=== PATIENT | male | born 1990 | race African-American/Black ===

== ENCOUNTER 2018-06-30 10:31 | Emergency (ER) | payer MEDICAID, OTHER ==
[~2018-06-30] VITALS: Ht 193 cm; Wt 108.9 kg
[2018-06-30 11:16] LABS: Urine Bacteria NONE SEEN /hpf (None Seen); Urine Blood Negative /uL (Negative); Urine Specific Gravity 1.024 (1.001-1.035); Urine WBC 5 /hpf (0 - 3)
[2018-06-30 11:20] LABS: Amphetamine Screen, Urine NEGATIVE (NEGATIVE); Benzodiazephine Screen, Urine NEGATIVE (NEGATIVE); Cannabinoid Screen, Urine POSITIVE (NEGATIVE); Cocaine Screen, Urine NEGATIVE (NEGATIVE); Opiate Scree,Urine NEGATIVE (NEGATIVE); Phencyclidine Screen, Urine NEGATIVE (NEGATIVE)
[2018-06-30 11:26] LABS: Barbiturate Scree,Urine NEGATIVE (NEGATIVE)
[2018-06-30 11:29] LABS: Basophils # (auto) 0 uL; Basophils % (auto) 0.7 % (0.0-2.0); Eosinophils # (auto) 0.3 uL; Eosinophils % (auto) 4.9 % (0.0-7.0); Hematocrit 47.9 % (41.0-53.0); Hemoglobin 16.2 g/dL (13.5-17.5); Lymphocytes # (auto) 1.5 uL; Lymphocytes % (auto) 24.4 % (10.0-50.0); Mean Corpuscular Hemoglobin 30.9 pg (28.0-32.0); Mean Corpuscular Hgb Conc. 33.8 g/dL (32.0-36.0); Mean Corpuscular Volume 91.6 fL (80.0-100.0); Monocytes # (auto) 0.4 uL; Monocytes % (auto) 6.1 % (0.0-12.0); Neutrophils % (auto) 63.9 % (37.0-80.0); Nucleated Red Blood Cells % 0.1 %; Platelet Count (auto) 178 10^3/uL (140-450); Red Blood Cells 5.23 10^6/uL (4.5-5.90); Red Cell Distribution Width 14.2 % (11.8-14.3); White Blood Cell 6.3 10^3/uL (4.4-10.8)
[2018-06-30 11:40] LABS: Alanine Aminotransferase 64 U/L (16-61); Albumin 3.9 g/dL (3.4-5.0); Anion Gap 8 (5-15); Aspartate Aminotransferase 45 U/L (15-37); BUN/Creatinine Ratio 11.3; Blood Alcohol < 3.0 mg/dL (0-5); Blood Urea Nitrogen 14 mg/dL (7-18); Calcium 8.6 mg/dL (8.5-10.1); Carbon Dioxide 24 mmol/L (21-32); Chloride 107 mmol/L (98-107); GFR African American 89 mL/min; GFR Non-African American 73 mL/min; Glucose 90 mg/dL (74-106); Potassium 4.1 mmol/L (3.5-5.1); Sodium 139 mmol/L (136-145)
[2018-06-30 11:42] LABS: Alkaline Phosphatase 59 U/L (45-117); Bilirubin, Total 0.8 mg/dL (0.2-1.0); Total Protein 8.1 g/dL (6.4-8.2)
[2018-06-30] MEDS ORDERED: ONDANSETRON HCL 4 MG/2 ML VIAL IV ONE (16:30)
[2018-06-30] MEDS ORDERED: SODIUM CHLORIDE 0.9% 1,000 ML IVB ONE (16:30)
[2018-06-30] MEDS ORDERED: PANTOPRAZOLE 40 MG/10 ML VIAL IV ONE ×2 (16:30→18:45)
[2018-06-30 17:00] LABS: Magnesium 2.1 mg/dL (1.6-2.6)
[2018-06-30 17:11] LABS: INR 1.06 (0.9-1.15); Partial Thromboplastin Time 27.8 sec (23.78-33.04); Prothrombin Time 11.3 sec (9.27-12.13)
[2018-06-30 17:53] VITALS: BP 120/54
[2018-06-30] MEDS ORDERED: SODIUM CHLORIDE 0.9% 1,000 ML IV SCH (18:35)
[2018-06-30] MEDS ORDERED: NITROGLYCERIN 0.4 MG SL TAB SL PRN (18:45)
[2018-06-30] MEDS ORDERED: THIAMINE 100mg/ml INJ (200mg/2ml VIAL) IV ONE (18:45)
[2018-06-30] MEDS ORDERED: TEMAZEPAM 15 MG CAP PO PRN (18:45)
[2018-06-30] MEDS ORDERED: cefTRIAXone 1GM/50ML D5W 50 ML IV ONE (18:45)
[2018-06-30] MEDS ORDERED: MORPHINE SULFATE 4 MG/ML SYR/VIAL IV PRN ×2 (18:45)
[2018-06-30] MEDS ORDERED: chlordiazePOXIDE HCL 25 MG CAP PO PRN (18:45)
[2018-06-30] MEDS ORDERED: PROMETHAZINE HCL 25 MG/ML 1ML IV PRN (18:45)
[2018-06-30] MEDS ORDERED: traMADol HCL 50 MG TAB PO PRN (18:45)
[2018-06-30] MEDS ORDERED: LORazepam 0.5 MG TAB PO PRN (18:45)
[2018-07-01] MEDS ORDERED: chlordiazePOXIDE HCL 5 MG CAP PO SCH
[2018-07-01] MEDS ORDERED: cefTRIAXone 1GM/50ML D5W 50 ML IV SCH (09:00)
[2018-07-01] MEDS ORDERED: PANTOPRAZOLE 40 MG/10 ML VIAL IV SCH (10:00)
[2018-07-01] MEDS ORDERED: THIAMINE 100mg/ml INJ (200mg/2ml VIAL) IV SCH (10:00)
== END 2018-06-30 19:17 | disposition left against medical advice (07) ==
LOC: ER 10:38 → UNDOADMIN 10:39 → TELE 10:39 → ER 19:17
DX: K92.0 Hematemesis (principal); F10.10 Alcohol abuse, uncomplicated; R94.5 Abnormal results of liver function studies; F17.210 Nicotine dependence, cigarettes, uncomplicated; F12.10 Cannabis abuse, uncomplicated
CPT/HCPCS: 36415; 71046; 74176; 80053; 80307; 80320; 81001; 82150; 83690; 83735; 85025; 85045; 85610; 85730; 87086; 94761; 96361; 96374; 96375; 99285; C9113; J2405

== ENCOUNTER 2020-03-01 23:06 | Emergency (ER) | payer MEDICAID ==
[~2020-03-01] VITALS: Ht 182.9 cm; Wt 106.6 kg
[2020-03-02 04:20] VITALS: BP 124/69
[2020-03-02] MEDS ORDERED: IBUPROFEN 800 MG TAB PO ONE (04:30)
== END 2020-03-02 04:39 | disposition home or self-care (01) ==
LOC: ER 23:06
DX: S90.862A Insect bite (nonvenomous), left foot, initial encounter (principal); F17.210 Nicotine dependence, cigarettes, uncomplicated; W57.XXXA Bitten or stung by nonvenomous insect and other nonvenomous arthropods, initial encounter; Y93.89 Activity, other specified; Y92.89 Other specified places as the place of occurrence of the external cause; Y99.8 Other external cause status
CPT/HCPCS: 73620

== ENCOUNTER 2021-05-02 18:13 | Emergency (ER) | payer MEDICAID ==
[~2021-05-02] VITALS: Ht 193 cm; Wt 97.5 kg
[2021-05-02 18:15] VITALS: BP 110/76
== END 2021-05-02 19:14 | disposition left against medical advice (07) ==
LOC: ER 18:13
DX: R68.84 Jaw pain (principal); Z53.21 Procedure and treatment not carried out due to patient leaving prior to being seen by health care provider

== ENCOUNTER 2025-03-17 12:25 | Emergency (ER) | payer MEDICAID, OTHER ==
[~2025-03-17] VITALS: Ht 193 cm; Wt 103.4 kg
[2025-03-17 12:41] VITALS: BP 107/67; PULSE 69; RESP 22; TEMP 97.7; O2SAT 97
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
[2025-03-17] MEDS ORDERED: IBUP-1456 PO (13:56)
== END 2025-03-17 14:01 | disposition home or self-care (01) ==
LOC: ER 12:29
DX: S16.1XXA Strain of muscle, fascia and tendon at neck level, initial encounter (principal); F17.210 Nicotine dependence, cigarettes, uncomplicated; F10.90 Alcohol use, unspecified, uncomplicated; F12.90 Cannabis use, unspecified, uncomplicated; F20.9 Schizophrenia, unspecified; F32.A Depression, unspecified; Z79.1 Long term (current) use of non-steroidal anti-inflammatories (NSAID); W22.8XXA Striking against or struck by other objects, initial encounter; Y93.89 Activity, other specified; Y92.488 Other paved roadways as the place of occurrence of the external cause; Y99.8 Other external cause status; Y90.9 Presence of alcohol in blood, level not specified
CPT/HCPCS: 72040